=== PATIENT | male | born 1950 | race Caucasian/White ===

== ENCOUNTER 2022-04-23 12:19 | Inpatient (IN) | payer MEDICARE, SELFPAY ==
[2022-04-23] VITALS (69 sets, daily range): BP systolic 89–204; BP diastolic 62–114; PULSE 79–108; RESP 13–36; TEMP 35.3–36.8; O2SAT 73–100; BMI 4394.9
--- NOTE | 2022-04-23 12:25 | XRR_ITS ---
PROCEDURE INFORMATION: Exam: XR Chest Exam date and time: 04/23/2022 1:19 PM Age: 71 years old Clinical indication: Device placement; Other: Et and ng placement; Additional info: Cardiac arrest TECHNIQUE: Imaging protocol: Radiologic exam of the chest. Views: 1 view. COMPARISON: No relevant prior studies available. FINDINGS: Tubes, catheters and devices: There is an ET tube in satisfactory position 5 cm above the joshua. There is an NG tube coursing into the body of the stomach in adequate position. Lungs: Mild pulmonary vascular congestion noted. Retrocardiac opacity obscured by left heart border concerning for left lower lobe consolidation.. Pleural spaces: Unremarkable. No pleural effusion. No pneumothorax. Heart/Mediastinum: Heart appears mildly enlarged on this portable chest exam. Bones/joints: Unremarkable for age. XR/XR chest 1V portable [id number] IMPRESSION: 1. ET and NG tube in satisfactory position. 2. Cardiomegaly with mild pulmonary vascular congestion. 3. Findings suspicious for left lower lobe consolidation.
--- NOTE | 2022-04-23 12:26 | ECG_ITS ---
[facility] Test Date: 2022-04-23 Pat Name: Zhao Martin Department: Room: Gender: Male Eyeglass Frame Truer: : 1950 Requested By: Sanju Lagunas Order Number: [id number] Ya MD: Bob Jacobo M.D. Measurements Intervals [place] Rate: 89 P: 59 WA: 156 QRS: -2 QRSD: 96 T: 83 QT: 383 QTc: 468 Interpretive Statements SINUS RHYTHM WITH FREQUENT ECTOPIC PREMATURE COMPLEXES POSSIBLE RIGHT VENTRICULAR CONDUCTION DELAY [RSR (QR) IN V1/V2] NONSPECIFIC ST & T-WAVE ABNORMALITY ABNORMAL RHYTHM ECG INTERPRETATION BASED ON A DEFAULT AGE OF 40 YEARS No previous ECG available for comparison Electronically Signed On 04-23-2022 14:27:55 MAIL HANDLER SORTER by Bob Jacobo M.D. [email or web address]/store/[id number] f
[2022-04-23] MEDS: vecuronium 10 mg SDV 3 MG IVP (12:28)
--- NOTE | 2022-04-23 12:28 | PC.NURSE ---
REQUESTED SEDATION OR PAIN MEDS FOR PT. DR TEJADA GAVE VERBAL ORDER FOR 3MG VECURONIUM. DOUBLE CHECKED ORDER WITH PHYSICIAN. PHYSICIAN INSTRUCTED TO CONTINUE WITH ADMINISTRATION
--- NOTE | 2022-04-23 12:30 | PC.NURSE ---
PT ARRIVED WITH NG TUBE IN PLACE
--- NOTE | 2022-04-23 12:40 | PC.NURSE ---
PT PLACED ON CONTINUOUS NIBP, SPO2, AND CM
[2022-04-23] MEDS: sodium bicarbonate 8.4% 1 mEq/mL 50mL Syr 100 MEQ IVP (12:45)
--- NOTE | 2022-04-23 12:45 | PC.NURSE ---
DR. DOE GAVE VERBAL ORDER TO APPLY TWO POINT SOFT RESTRAINT
[2022-04-23 12:54] LABS: ABG PH Result 7.32 (7.35-7.45); Blood Gas Allen Test Pos; Blood Gas Sample Site Radial, left; Blood Gas Sample Type Arterial; Carboxyhemoglobin < 1.0 %THgb (0.4-20.1); Methemoglobin 0.3 % (0.4-1.5); Oxygen Device VENT
[2022-04-23 12:57] LABS: Basophils # 0.1 10^3/uL (0.0-0.1); Basophils % 0.7 %; Eosinophils # 0.2 10^3/uL (0.0-0.8); Eosinophils % 1.5 %; Hematocrit 50.7 % (42.0-52.0); Hemoglobin 16.4 g/dL (11.7-16.6); Lymphocytes # 2.2 10^3/uL (0.8-4.8); Mean Corpuscular HGB Conc 32.3 g/dL (30.0-36.0); Mean Corpuscular Hemoglobin 29.8 pg (28.0-34.0); Mean Platelet Volume 10.4 fL (7.4-10.4); Monocytes # 0.2 10^3/uL (0.2-0.9); Monocytes % 1.5 %; Neutrophils # 8.96 10^3/uL (1.8-7.7); Nucleated Red Blood Cells % 0 %; Platelet Count 229 10^3/cmm (130-400); Red Blood Count 5.51 10^6/uL (4.1-5.3); Red Cell Distribution Width 12.5 % (12.1-15.1); White Blood Count 13.1 10^3/uL (4.0-10.0)
[2022-04-23 12:59] LABS: Alveolar-Arterial Oxygen Gradi 75.3 mmHg (5-10); Arterial Blood Gas Hematocrit 51.7 % (42-52); Base Excess ABG -1.6 mmol/L (-2.0-2.0); HCO3 ABG 29.7 mmol/L (22-26); HGB O2 Sat 73.3 % (95-100); Oxygen Saturation ABG 74.3; PO2 ABG 50.1 mmHg (80.0-100.0); Potassium Level - ABG 4.2 mmol/L (3.5-5.0); Total Hemoglobin 16.9 g/dL (14-18)
--- NOTE | 2022-04-23 13:00 | PC.NURSE ---
pt arrived to ed from [facility]. with 8fr et tube and ng tube intact. levophed running. [facility] reports giving total 475mg of ketamine over multiple doses for pt sedation. pt arrived with left humerus io, 18g iv in left wrist and 18g iv in right ac space. Xray verified tube placement. equal breath sounds heard bilat. dr. sarkar then started a central line in the right groin.
--- NOTE | 2022-04-23 13:15 | PC.NURSE ---
DR. DOE PLACED 7FR CENTRAL LINE TO RIGHT GROIN. CENTRAL LINE KIT USED.
--- NOTE | 2022-04-23 13:17 | ED_ITS ---
HPI - Syncope General: Chief Complaint: Cardiac Arrest/CPR Stated Complaint: INTUBATED Time Seen by Provider: 04/23/22 12:22 Source: EMS and other (er physician at [facility]) Mode of arrival: other ([facility]) Limitations: altered mental status and other (intubated) History of Present Illness: See nursing assessment. Patient reportedly had a witnessed arrest at 9:50 AM today. Bystander started CPR. EMS responded and did CPR and followed ACLS protocol for PEA. Patient had CPR ongoing for approximately 65 minutes prior to arrival to hospital. Patient did have return of spontaneous pulses and occasional spontaneous breathing. Patient has been intubated with 8.0 endotracheal tube. Patient received a total of 12 doses of 1 mg epinephrine prior to arrival. Patient to be given 150 mg amiodarone IV. Patient reportedly only received 1500 units of heparin bolus prior to arrival according to ER nurse at [facility]. Patient was started on heparin drip prior to arrival. Patient to be given 1 amp of bicarb prior to arrival. Her blood sugar upon arrival was 267. Patient arrives intubated on Levophed drip. Patient received ketamine for intubation. Patient became hypotensive in route. According to nurse at [facility] review of records showed allergy to penicillin and history of asthma and occasional pneumonia. No cardiac history noted. Patient does appear to be moving his upper extremities. Review of Systems General: Reports: ROS unobtainable due to medical condition, ROS unobtainable due to mental status and Other (Patient reportedly had witnessed cardiac arrest at home. Pt is intubated) Card: Reports: syncope Resp: Denies: dyspnea Neuro: Reports: other (Altered mental status) [facility] ED PFSH: Medical History No pertinent past medical history Surgical History No pertinent past surgical history Family History (Updated 04/23/22 @ 16:16 by Teetee Parker MD) Other CAD (coronary artery disease) Social History (Updated 04/23/22 @ 16:16 by Teetee Parker MD) Smoking and tobacco status: never smoked Alcohol intake: never Substance/Drug Use: never Household members: spouse Supplemental [facility] Information: According to nursing personnel from [facility] ER patient has a history of asthma and occasional pneumonia. Physical Exam Const: EXAM LIMITATIONS: altered mental status and other limitations (Intubated, sedated) HENMT: COMMON NORMALS: normocephalic and atraumatic HEAD & SCALP: normocephalic and atraumatic FACE & SINUS: normal facial exam Eye: OTHER: Pupils are pinpoint bilaterally Neck/C-Spine: COMMON NORMALS: full ROM, no lymphadenopathy and supple GENERAL: Yes normal visual inspection Lymph: LYMPHATIC: no lymphadenopathy noted Chest: COMMONS NORMALS: normal inspection of the chest and normal palpation of entire chest wall CHEST: No Ecchymosis present and No rash Resp: OTHER: Few rhonchi bilaterally. Otherwise, clear breath sounds bilaterally. Cardio: COMMON NORMALS: regular rate, regular rhythm and Peripheral pulses 2+ throughout RATE: regular rate RHYTHM: regular rhythm PERIPHERAL PULSES: Peripheral pulses 2+ throughout GI: COMMON NORMALS: Normal to inspection, nondistended, normoactive bowel sounds present : OTHER: Penis and scrotum appear normal. Extremity: COMMON NORMALS: normal to inspection, full ROM and capillary refill normal Neuro: OTHER: Patient has been sedated and is on ventilator. Patient does move his upper extremities as sedation wears off. Psych: OTHER: Patient intubated and sedated. Skin: COMMON NORMALS: no rashes or lesions noted and no wounds GENERAL SKIN EXAM: no rashes or lesions noted Procedures Central Line Placement Right Femoral: Patient Placed on Monitor/Pulse Ox: Yes MD Prep: mask, gown and gloves Central Line Prep: Chlorhexidine scrub and sterile drapes applied Local Anesthetic: lidocaine 1% Amount of anesthesia used (mL): 10 Ultrasound Used for Placement: Yes Central Line Lumen Inserted: triple Post Procedure: sutured in place, good blood return, all ports aspirated, flushed, capped and sterile dressing applied Patient Tolerated Procedure: well and other Complications: none Additional Comments: Was able to penetrate right femoral vein with first attempt but wire did not pass well and I removed the wire and attempted again. I did puncture the right femoral artery a of couple of times. After few more attempts I was able to get access to right femoral vein. Good blood return and good flushing without problems. No pulsatile blood flow with last attempt. Course Vital Signs: Vital signs: Vital Signs Temperature 95.6 F L 04/23/22 18:00 Pulse Rate 81 04/23/22 18:30 Respiratory Rate 17 04/23/22 18:15 Blood Pressure 111/78 04/23/22 18:30 Pulse Oximetry 100 04/23/22 18:30 Oxygen Delivery Me thod 04/23/22 16:05 Fraction of Inspir ed Oxygen 90 04/23/22 18:15 MDM - Syncope Medical Decision Making Spontaneous cardiac arrest. Return of spontaneous pulse and respirations. Initial cardiac strip reviewed from EMS showed widened QRS and ST segment elevations in inferior lateral leads. Reportedly rn first assist reviewed the strip and stated strip was nonspecific. EKG here shows ST segment depression throughout consistent with myocardial ischemia and occasional PVC. According to nursing personnel, clean protocol is not available at this hospital. approx 1330: Discussed with rn first assist Dr. Jacobo. He will see the patient as a trousseau consultant. He will assess the patient and determine if patient is candidate for cardiac cath. 1340: Discussed with hospitalist Dr. Parker. Will admit the patient to ICU. Asked that I start bicarb drip. 1441: Son and and [id number] came back to the room. Son states that patient was sitting in the car and had lost consciousness and brief seizure activity. Son started CPR immediately after he could not find a pulse. Sons continued CPR until EMS arrived. Family updated on patient's condition and treatment. Lab Data 04/23/22 12:20 04/23/22 12:20 Radiology Impressions Chest X-Ray 04/23/22 12:25 IMPRESSION: 1. ET and NG tube in satisfactory position. 2. Cardiomegaly with mild pulmonary vascular congestion. 3. Findings suspicious for left lower lobe consolidation. Head CT 04/23/22 16:21 IMPRESSION: No acute intracranial abnormality. Laboratory Results WBC 13.1 10^3/uL (4.0-10.0) H 04/23/22 12:20 RBC 5.51 10^6/uL (4.1-5.3) H 04/23/22 12:20 Hgb 16.4 g/dL (11.7-16.6) 04/23/22 12:20 Hct 50.7 % (42.0-52.0) 04/23/22 12:20 MCV 92.0 fl (80-94) 04/23/22 12:20 MCH 29.8 pg (28.0-34.0) 04/23/22 12:20 MCHC 32.3 g/dL (30.0-36.0) 04/23/22 12:20 RDW 12.5 % (12.1-15.1) 04/23/22 12:20 Plt Count 229 10^3/cmm (130-400) 04/23/22 12:20 MPV 10.4 fL (7.4-10.4) 04/23/22 12:20 Neut % (Auto) 79.3 % 04/23/22 12:20 Lymph % (Auto) 17.0 % 04/23/22 12:20 [place] % (Auto) 1.5 % 04/23/22 12:20 Eos % (Auto) 1.5 % 04/23/22 12:20 Baso % (Auto) 0.7 % 04/23/22 12:20 Neut # (Auto) 8.96 10^3/uL (1.8-7.7) H 04/23/22 12:20 Lymph # (Auto) 2.2 10^3/uL (0.8-4.8) 04/23/22 12:20 [place] # (Auto) 0.2 10^3/uL (0.2-0.9) 04/23/22 12:20 Eos # (Auto) 0.2 10^3/uL (0.0-0.8) 04/23/22 12:20 Baso # (Auto) 0.1 10^3/uL (0.0-0.1) 04/23/22 12:20 Nucleated RBC % (auto) 0 % 04/23/22 12: Nucleated RBCs # 0.0 /100WBC 04/23/22 12:20 APTT 42.8 SECONDS (23.9-36.7) H 04/23/22 12:20 Specimen Type Arterial 04/23/22 12:42 Sample Site Radial, left 04/23/22 12:42 ABG pH 7.32 (7.35-7.45) L 04/23/22 12:42 ABG pCO2 79.8 mmHg (35-45) H* 04/23/22 12:42 ABG pO2 50.1 mmHg (80.0-100.0) L 04/23/22 12:42 ABG HCO3 29.7 mmol/L (22-26) H 04/23/22 12:42 ABG O2 Saturation 74.3 04/23/22 12:42 ABG Base Excess -1.6 mmol/L (-2.0-2.0) 04/23/22 12:42 Maxi Test Pos 04/23/22 12:42 A-a O2 Gradient 75.3 mmHg (5-10) H 04/23/22 12:42 Hematocrit 51.7 % (42-52) 04/23/22 12:42 Hgb O2 Saturation 73.3 % (95-100) L 04/23/22 12:42 Carboxyhemoglobin < 1.0 %THgb (0.4-20.1) 04/23/22 12:42 Methemoglobin 0.3 % (0.4-1.5) L 04/23/22 12:42 Total Hemoglobin 16.9 g/dL (14-18) 04/23/22 12:42 Sodium 147.0 mmol/L (131-143) H 04/23/22 12:42 Potassium 4.2 mmol/L (3.5-5.0) 04/23/22 12:42 Glucose 270.0 mg/dL (70-115) H 04/23/22 12:42 Ionized Calcium 1.0 mmol/L (1.1-1.4) L 04/23/22 12:42 O2 Delivery Device Vent 04/23/22 12:42 FiO2 100.0 % 04/23/22 12:42 Tidal Volume 0.50 04/23/22 12:42 PEEP 10.0 cmH20 04/23/22 12:42 Associate Professor Of Economics ID [email or web address] 04/23/22 12:42 Sodium 138 mmol/L (136-145) 04/23/22 12:20 Potassium 5.0 mmol/L (3.5-5.1) 04/23/22 12:20 Chloride 99 mmol/L (98-107) 04/23/22 12:20 Carbon Dioxide 17 mmol/L (22-29) L 04/23/22 12:20 Anion Gap 27.0 (5-19) H 04/23/22 12:20 BUN 14 mg/dL (8-23) 04/23/22 12:20 Creatinine 1.7 mg/dL (0.7-1.2) H 04/23/22 12:20 GFR Calculation 40.2 mL/min (90-130) L 04/23/22 12:20 Glucose 320 mg/dL (65-115) H 04/23/22 12:20 Calculated Osmolality 299 mOsm/kg (285-295) H 04/23/22 12:20 Calcium 7.7 mg/dL (8.5-10.5) L 04/23/22 12:20 Troponin T Baseline 1014 ng/L (0-15) H* 04/23/22 12:20 NT-Pro-B Natriuret Pep 118 pg/mL (0-125) 04/23/22 12:20 SARS-CoV-2 Ag (Rapid) negative (Negative) 04/23/22 13:37 Imaging Data CXR: My impression: Mild pulmonary edema bilaterally. Endotracheal tube in good position. Radiologist's impression: PROCEDURE INFORMATION: Exam: XR Chest Exam date and time: 04/23/2022 1:19 PM Age: 71 years old Clinical indication: Device placement; Other: Et and ng placement; Additional info: Cardiac arrest TECHNIQUE: Imaging protocol: Radiologic exam of the chest. Views: 1 view. COMPARISON: No relevant prior studies available. FINDINGS: Tubes, catheters and devices: There is an ET tube in satisfactory position 5 cm above the joshua. There is an NG tube coursing into the body of the stomach in adequate position. Lungs:? Mild pulmonary vascular congestion noted.? Retrocardiac opacity obscured by left heart border concerning for left lower lobe consolidation.. Pleural spaces: Unremarkable. No pleural effusion. No pneumothorax. Heart/Mediastinum: Heart appears mildly enlarged on this portable chest exam. Bones/joints: Unremarkable for age. XR/XR chest 1V portable [id number] IMPRESSION: 1. ET and NG tube in satisfactory position. 2. Cardiomegaly with mild pulmonary vascular congestion. 3. Findings suspicious for left lower lobe consolidation. ? Dictated By: Ja Moura MD Signed By: Ja Moura MD Signed Date/Time: 04/23/22 6060 EKG Data EKG 1: I personally reviewed and interpreted this EKG as follows: EKG interpretation date: 04/23/22 EKG interpretation time: 12:27 Prior EKG tracings: not available for review Interpretation: Impression normal sinus rhythm with a heart rate of 89. Normal IL interval, normal QT interval. Normal P waves, normal T waves. Normal axis. Occasional PVC. Normal QRS. ST segment 1 to 2 mm depression consistent with myocardial ischemia. EKG 2: I personally reviewed and interpreted this EKG as follows: EKG interpretation date: 04/23/22 EKG interpretation time: 14:37 Prior EKG tracings: available for review (Mild improvement of ST segment depression since last EKG.) Interpretation: Impression sinus tachycardia with heart rate of 104. Mild improvement of ST segment depression throughout. Normal axis. Normal IL interval, normal QT interval. ST segment depression consistent with myocardial ischemia. Left atrial enlargement. Normal axis. Critical Care Time Critical Care Time: Critical Care Time: Yes Total Critical Care Time: 90 Attestation: See orders. Consultations with EMS, [facility] ER physician, hospitalist and rn first assist. Discharge Plan Discharge Patient Disposition: Admitted As Inpatient Admit Provider: Teetee Parker Clinical Impression: Cardiac arrest, Acute myocardial ischemia, Non-ST elevated myocardial infarction (non-STEMI), Encounter for central line placement, Acute hyperglycemia Condition: Stable Coding Level of Care Code ED Automobile Radio Repairer for Chg Fwd History Comprehensive Exam Comprehensive Medical Decision Making High Complexity
--- NOTE | 2022-04-23 13:17 | PC.NURSE ---
pt opening eyes, requested sedation or pain medication for pt. verbal order for 3mg Vecuronium IVP received. physician placing order for propofol drip.
[2022-04-23 13:19] LABS: Partial Thromboplastin Time 42.8 SECONDS (23.9-36.7)
[2022-04-23 13:26] LABS: Troponin(5th) Baseline 1014 ng/L (0-15)
[2022-04-23 13:29] LABS: Neutrophils % 79.3 %; Slide Review Slide Review Perform
[2022-04-23] MEDS: propofol 1,000 MG/100 ML INJ 2.94 MG IV (13:29)
[2022-04-23] MEDS: heparin 5,000 unit/mL INJ 1 mL 2500 UNIT IV (13:45)
[2022-04-23] MEDS: FUROsemide 10 mg/mL SDV 2mL 20 MG IVP (13:45)
[2022-04-23] MEDS: heparin drip 25,000 UNIT/500 ML PREMIX 23.52 UNIT IV (14:02)
--- NOTE | 2022-04-23 14:03 | P.CONIM_ITS ---
Providers/Reason For Consult Consulting Physician/Specialty*: Cardiovascular medicine Reason for Consult*: Out of hospital cardiac arrest. Requesting Physician: Emergency room Attending Physician: Hospitalist Primary Care Provider: IJEOMA Mcmahon History of Present Illness History of Present Illness Zhao Martin is a 71 year old male who apparently suffered a witnessed arrest at home this morning it 0950 hrs. There was apparently bystander CPR. 911 was called and EMS arrived and performed ACLS protocol for PEA for 65 minutes. ROSC was eventually achieved. He was taken to [facility] in [place]. The note states that the patient had has had some spontaneous breathing. He was given total of 12 mg of epinephrine and 150 mg of amiodarone. The [facility] gave him 1500 units of heparin. He has been given an additional 2500 units here and started on a heparin drip. He was also given ketamine and succinylcholine for intubation at the [facility]. He was given 1 amp of sodium bicarbonate at the [facility]. His blood sugar was 267. He was transferred here on norepinephrine drip but that has been discontinued. His blood pressure is 122/60. Obviously a history cannot be taken. There are no family members here at this time. The patient is intubated and lying on the gurney. There are a lot of spontaneous movements that appear to me to be myoclonic in origin. Propofol has been started so along with the succinylcholine, ketamine and propofol it is impossible to assess his overall mental status at this point. Twelve-lead EKG here reveals sinus rhythm with premature ventricular contractions and diffuse mild ST segment depression. There is no ST elevation. Review of Systems Narrative: Unavailable Medications/Allergies Home Medications Medication Instructions Recorded Confirmed Last Taken Type Unable to Assess 04/23/22 04/23/22 Unknown History Allergies Allergy/AdvReac Type Severity Reaction Status Date / Time Penicillins Allergy Unknown Unknown Verified 04/23/22 13:39 Current Medications Generic Name Dose Route Start Last Admin Trade Name Freq PRN Reason Stop Dose Admin Norepinephrine Bitartrate 4 mg 254 mls @ 0 mls/hr 04/23/22 12:45 04/23/22 13:00 / Dextrose IV 0 mcg/min .Q0M MEY 0 mls/hr Titration Protocol Per Protocol Propofol 1,000 mg in 100 mls @ 0 mls/hr 04/23/22 13:15 04/23/22 13:50 Diprivan IV 15 mcg/kg/min .Q0M MEY 8.82 mls/hr Titration Protocol Per Protocol Vitals/I&O/Wt Last Vital Signs Temp 95.5 F L 04/23/22 12:25 Pulse 97 04/23/22 12:25 Resp 14 04/23/22 12:34 BP 128/80 04/23/22 12:25 Pulse Ox 98 04/23/22 12:25 O2 Del Method 04/23/22 12:25 FiO2 100 04/23/22 12:34 04/22/22 04/23/22 04/23/22 22:59 06:59 14:59 Intake Total 7.332 / 7.332 Balance 7.332 / 7.332 Physical Exam Narrative: GENERAL: He is intubated, sedated and lying on the gurney in the emergency room. There are spontaneous movements of his arms, legs and musculature which appear to be myoclonic in origin. HEENT: Exam within normal limits. NECK: Supple without jugular vein distention. The carotid upstroke is normal without bruits. BACK: Exam normal. LUNGS: Clear. HEART: Regular rate and rhythm. ABDOMEN: Benign without organomegaly or tenderness. EXTREMITIES: No edema. NEUROLOGIC: Exam not done. SKIN: Unremarkable. Data 04/23/22 12:20 04/23/22 12:20 A&P Assessment and plan (1) Cardiac arrest: Plan If what is reported is correct, that is the original rhythm was PEA and that he actually had CPR for 65 minutes, the likelihood of survival is less than 1%. The twelve-lead EKG does not reveal ST segment elevation and so he is not a candidate for coronary angiography emergently. He should be supported with respect to his vital signs and respirations and we should await his central nervous system reawakening if that is going to happen. Cardiac catheterization should be delayed until there is meaningful neurologic recovery. Consult Attestations Medical Necessity Statement: Hospitalization for post out of hospital cardiac arrest. Coding Level of Care Code New Pt Acute Code for Chg Fwd Patient Type New History Detailed Exam Detailed Medical Decision Making High Complexity Diagnoses Cardiac arrest I46.9
[2022-04-23 14:04] LABS: Blood Urea Nitrogen 14 mg/dL (8-23); Calcium 7.7 mg/dL (8.5-10.5); Carbon Dioxide 17 mmol/L (22-29); Chloride 99 mmol/L (98-107); Glomerular Filtration Rate 40.2 mL/min (90-130); Glucose 320 mg/dL (65-115); NT Pro B Type Natriuretic Pept 118 pg/mL (0-125); Osmolality Calculated 299 mOsm/kg (285-295); Sodium 138 mmol/L (136-145)
--- NOTE | 2022-04-23 14:10 | PC.NURSE ---
LEVOPHED STARTED AT 2MCG HOOKED TO CENTRAL LINE
--- NOTE | 2022-04-23 14:35 | ECG_ITS ---
[facility] Test Date: 2022-04-23 Pat Name: Zhao Martin Department: Room: Gender: Male Offal Roller: : 1950 Requested By: Sanju Lagunas Order Number: [id number] Ya MD: Bob Jacobo M.D. Measurements Intervals [place] Rate: 104 P: 71 AK: 140 QRS: 30 QRSD: 88 T: 83 QT: 359 QTc: 473 Interpretive Statements SINUS TACHYCARDIA MODERATE ST DEPRESSION [0.05+ mV ST DEPRESSION] Compared to ECG 04/23/2022 12:24:21 ST (T wave) deviation now present Sinus rhythm no longer present T-wave abnormality no longer present Electronically Signed On 04-24-2022 10:09:12 AIR CARGO GROUND OPERATIONS SUPERVISOR by Bob Jacobo M.D. [email or web address], [id number]
[2022-04-23 14:44] LABS: SARS Covid-2 Antigen negative (Negative)
[2022-04-23] MEDS: sodium bicarbonate 50 MEQ in sodium chloride 0.45% 1,000 ML 100 MEQ IV (14:45)
[2022-04-23 15:00] LABS: ABG PCO2 42.6 mmHg (35-45); ABG PH Result 7.27 (7.35-7.45); Base Excess ABG -7.5 mmol/L (-2.0-2.0); Blood Gas Allen Test Pos; Blood Gas Sample Site Radial, left; Blood Gas Sample Type Arterial; Carboxyhemoglobin < 1.0 %THgb (0.4-20.1); HCO3 ABG 19.3 mmol/L (22-26); HGB O2 Sat 97.5 % (95-100); Ionized Calcium Level - ABG 1.1 mmol/L (1.1-1.4); Methemoglobin 0.2 % (0.4-1.5); Oxygen Saturation ABG 98.3; Potassium Level - ABG 4.1 mmol/L (3.5-5.0); Total Hemoglobin 18.3 g/dL (14-18)
[2022-04-23 15:02] LABS: Alveolar-Arterial Oxygen Gradi 71.4 mmHg (5-10); Oxygen Device VENT
[2022-04-23] MEDS: aspirin 300 mg Supp PR (15:10)
[2022-04-23 15:12] LABS: Troponin 5 2HR 2241 ng/L (0-15); Troponin 5 2HR Delta 1227 ABS# (0-10)
--- NOTE | 2022-04-23 16:08 | P.HP_ITS ---
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 Jacobo reviewed EKG did not recommend urgent coronary angiogram however troponins are above 1000, patient has metabolic acidosis currently on bicarb drip along Levophed and sedatives. After meeting with the family, son is stating that he would like to keep him ful l code and agree with TTM/hypothermia protocol Patient was evaluated in front of ICU nurse, son, and [id number] Metabolic acidosis improving with bicarb drip, Chest x-ray showing pulmonary contusion versus flash pulm edema EKG does not show any ST elevation signs, Review of Systems General: Reports: ROS unobtainable due to endotracheal tube and ROS unobtainable due to medical condition Medications/Allergies Home Medications Medication Instructions Recorded Confirmed Last Taken Type Unable to Assess 04/23/22 04/23/22 Unknown History Allergies Allergy/AdvReac Type Severity Reaction Status Date / Time Penicillins Allergy Unknown Unknown Verified 04/23/22 13:39 PFSH Acute PFSH: Medical History No pertinent past medical history Surgical History No pertinent past surgical history Family History (Updated 04/23/22 @ 16:16 by Teetee Parker MD) Other CAD (coronary artery disease) Social History (Updated 04/23/22 @ 16:16 by Teetee Parker MD) Smoking and tobacco status: never smoked Alcohol intake: never Substance/Drug Use: never Household members: spouse Vitals/I&O/Wt Last Vital Signs Temp 95.5 F L 04/23/22 12:25 Pulse 100 04/23/22 14:50 Resp 31 H 04/23/22 15:51 BP 117/73 04/23/22 14:50 Pulse Ox 98 04/23/22 16:05 O2 Del Method 04/23/22 16:05 FiO2 90 04/23/22 16:05 04/23/22 04/23/22 04/23/22 06:59 14:59 22:59 Intake Total 25.499 / 25.499 Balance 25.499 / 25.499 Weight last 48 hrs Weight 102.087 kg Physical Exam Narrative: elderly male Seems to be of good built No signs of overt fluid overload Currently intubated and sedated Hemodynamic stable Afebrile No eye movement, pupils are not really reactive, constricted Abdomen soft Lower extremity no edema Urinary Catheter Management: Newton: Cath Placed During This Visit: yes Urinary Catheter Date of Insertion: 04/23/22 Urinary Catheter Time of Insertion: 14:17 Data 04/23/22 12:20 04/23/22 12:20 A&P Assessment and plan (1) Cardiac arrest: (2) Acute hyperglycemia: (3) Acute myocardial ischemia: (4) Non-ST elevated myocardial infarction (non-STEMI): (5) Metabolic acidosis: (6) RENA (acute kidney injury): Plan Respiratory failure after cardiac arrest Intubated and sedated in the field Resuscitation for 65 minutes by the EMS and 30 minutes by his son Patient is high risk for anoxic brain injury He is ideal candidate for TTM/hypothermia protocol Not a candidate for coronary angiogram For metabolic acidosis getting bicarb drip Requiring Levophed, after intubation likely due to the effect of drugs BNP 118 Check echo Patient was found to have myoclonus and some eye movement in the ER by the ER physician however he has not shown such activity during my evaluation Patient remained full code I would use Lovenox therapeutic regimen No feeding for at least 72 hours to prevent gut ischemia Patient has not been vaccinated for COVID-19 As per the family no recent fever however he was complaining of flulike symptoms This seems to be a PEA related to coronary ischemia Cooling Technique * Core temperature should be measured throughout the period of cooling via urinary catheter or oropharyngeal/nasopharyngeal probe,?not?rectal probe * The aim is to cool the patient as soon as possible to?36?C * This temperature should be sustained for 28 hours from initiation of cooling * All patients should have reached the target temperature as rapidly as possible from initiation of cooling. This is achieved initially by one of the following: * Applying icepacks to the patients head, neck, torso and limbs (remove when temperature reaches 36?C) * Infusing 20-30mls/kg of refrigerated saline over 20-30mins if volume status permits * Applying a cooling device (Blanketroll III, available in ICU, see protocol for instructions on use) * Patients?should be sedated for 36 hours after initiation of cooling * Prevent shivering with sedation and/or Vecuronium administered as required * Monitor patient for arrhythmias * Monitor electrolytes, ABGs and coagulation every 6 hours during cooling and rewarming phase * Monitor skin for breakdown and thermal oconnell. Use pillow case or other material between blanket and patients skin if required * After the intervention period, the body temperature for should be? maintained below 37.5?C until 72 hours after the cardiac arrest. Calcium levels may?fall?with cooling.Magnesium levels may?fall?with cooling .Potassium levels may?rise?or?fall?with cooling.Glucose levels may?rise?or?fall ?with cooling Re-warming procedure * After 28 hours, gradual rewarming to 37?C in hourly increments of 0.5?C. Use c ooling device to rewarm patient.?Do not remove the blanket to allow the patient to rewarm passively * Each hour increase the cooling blanket setpoint temperature by 0.5?C (to max imum setpoint of 37 ?C). Press the temperature set switch, use the up arrow to increase the setpoint by 0.5?C * Press the gradient variable button. Please refer to Blanketroll III protocol for instructions on use * Monitor electrolytes, ABGs and coagulation during and post rewarming * * * * Attestations Medical Necessity Statement*: Requiring more than 2 midnights Critical Care Time: 45, including assessment, family meeting, talk with Dr. Jacobo, initiating hypothermia protocol Coding Level of Care Code Acute Code for Chg Fwd Diagnoses Cardiac arrest I46.9 Acute hyperglycemia R73.9 Acute myocardial ischemia I24.9 Non-ST elevated myocardial infarction (non-STEMI) I21.4 Metabolic acidosis E87.20 RENA (acute kidney injury) N17.9
--- NOTE | 2022-04-23 16:21 | CTR_ITS ---
PROCEDURE INFORMATION: Exam: CT Head Without Contrast Exam date and time: 04/23/2022 4:46 PM Age: 71 years old Clinical indication: Other: Post cardiac arrest TECHNIQUE: Imaging protocol: Computed tomography of the head without contrast. Radiation optimization: All CT scans at this facility use at least one of these dose optimization techniques: automated exposure control; mA and/or kV adjustment per patient size (includes targeted exams where dose is matched to clinical indication); or iterative reconstruction. COMPARISON: No relevant prior studies available. RADIATION DOSE METRICS: Total DLP (mGy-cm): 1166.58 FINDINGS: Brain: No intracranial hemorrhage. No mass effect, edema or midline shift. Cortical sulci are unremarkable for age. There are vague areas of decreased attenuation within the periventricular white matter likely secondary to chronic microvascular changes. Cerebral ventricles: No ventriculomegaly. Paranasal sinuses: Visualized sinuses are unremarkable. No fluid levels. Mastoid air cells: Visualized mastoid air cells are well aerated. Bones/joints: Unremarkable. No acute fracture. Soft tissues: Unremarkable. CT/CT head wo con* [id number] IMPRESSION: No acute intracranial abnormality.
[2022-04-23 17:25] LABS: Glucose Point of Care 135 mg/dL (70-110)
[2022-04-23] MEDS: enoxaparin 100 mg/mL Syringe SUBCUT (18:12)
[2022-04-23] MEDS: FUROsemide 10 mg/mL SDV 4mL 40 MG IVP (18:13)
[2022-04-23] MEDS: levofloxacin-dextrose 5 % 750 MG/150 ML PREMIX 100 MG IV (18:13)
[2022-04-23] MEDS: propofol 1,000 MG/100 ML INJ 20.58 MG IV (18:16)
--- NOTE | 2022-04-23 18:26 | ECG_ITS ---
[facility] Test Date: 2022-04-23 Pat Name: Zhao Martin Department: Room: ICU12 Gender: Male Electronic Imaging System Operator: : [id number] Requested By: Sanju Lagunas Order Number: [id number] Ya MD: Bob Jacobo M.D. Measurements Intervals [place] Rate: 81 P: 51 IA: 139 QRS: 29 QRSD: 94 T: 60 QT: 394 QTc: 459 Interpretive Statements SINUS RHYTHM MODERATE ST DEPRESSION [0.05+ mV ST DEPRESSION] Compared to ECG 04/23/2022 14:35:48 Sinus tachycardia no longer present ST (T wave) deviation still present Electronically Signed On 04-24-2022 10:09:24 MAJOR ACCOUNT MANAGER by Bob Jacobo M.D. [id number]
[2022-04-23 18:41] LABS: INR 1.29 (0.8-1.2)
[2022-04-23 18:42] LABS: Fibrinogen 334 mg/dL (174-498); Partial Thromboplastin Time 46.1 SECONDS (23.9-36.7)
[2022-04-23 18:46] LABS: Alanine Aminotransferase 562 U/L (0-41); Albumin Level 3.6 g/dL (3.5-5.2); Alkaline Phosphatase 100 U/L (40-130); Blood Urea Nitrogen 19 mg/dL (8-23); Calcium 8.6 mg/dL (8.5-10.5); Carbon Dioxide 22 mmol/L (22-29); Chloride 99 mmol/L (98-107); Globulin 2.9 g/dL (1.3-4.6); Glomerular Filtration Rate 29.8 mL/min (90-130); Glucose 158 mg/dL (65-115); Osmolality Calculated 294 mOsm/kg (285-295); Sodium 139 mmol/L (136-145); Total Bilirubin 0.5 mg/dL (0.15-1.2); Total Protein 6.5 g/dL (6.6-8.7)
[2022-04-23 18:52] LABS: Anion Gap 22.5 (5-19); Potassium 4.5 mmol/L (3.5-5.1)
[2022-04-23 18:56] LABS: Aspartate Amino Transferase 801 U/L (0-40)
[2022-04-23 18:58] LABS: D Dimer >= 20.00 ug/mIFEU (0-0.59)
[2022-04-23 19:05] LABS: Troponin 5 6HR 4689 ng/L (0-15); Troponin 5 6HR Delta 3675 ng/L (0-12)
--- NOTE | 2022-04-23 19:06 | PC.NURSE ---
unable to proceed with cooling at this time Dr Corey aware not all equipment
--- NOTE | 2022-04-23 19:21 | PC.NURSE ---
Targeted temperature management unable to be done, Dr. Parker notified per ANDREY Martin RN.
--- NOTE | 2022-04-23 20:50 | PC.NURSE ---
Full assessment done of patient. VS remain stable, titrating levophed down as tolerated. Bilat pupils sluggish but equal and reactive to light. Slight gag reflex noted when NT suctioned. when touched slight jerking motions noted of all 4 extremities. Not following any commands. Eyes open at times when family speaking to patient. Rectal temp remains 96.8. Family remains at bedside.
[2022-04-23 22:51] LABS: Alanine Aminotransferase 498 U/L (0-41); Albumin Level 3.3 g/dL (3.5-5.2); Alkaline Phosphatase 83 U/L (40-130); Anion Gap 20.1 (5-19); Aspartate Amino Transferase 679 U/L (0-40); Blood Urea Nitrogen 23 mg/dL (8-23); Calcium 8.1 mg/dL (8.5-10.5); Carbon Dioxide 23 mmol/L (22-29); Chloride 99 mmol/L (98-107); Globulin 2.4 g/dL (1.3-4.6); Glomerular Filtration Rate 25.7 mL/min (90-130); Glucose 148 mg/dL (65-115); Osmolality Calculated 292 mOsm/kg (285-295); Potassium 4.1 mmol/L (3.5-5.1); Sodium 138 mmol/L (136-145); Total Bilirubin 0.4 mg/dL (0.15-1.2); Total Protein 5.7 g/dL (6.6-8.7)
[2022-04-24] VITALS (81 sets, daily range): BP systolic 0–141; BP diastolic 0–92; PULSE 0–142; RESP 0–44; TEMP -17.7–38.3; O2SAT 0–100
[2022-04-24] MEDS: sodium bicarbonate 50 MEQ in sodium chloride 0.45% 1,000 ML 100 MEQ IV (01:16)
[2022-04-24] MEDS: propofol 1,000 MG/100 ML INJ 14.7 MG IV (02:24)
[2022-04-24 03:09] LABS: Basophils % 0.2 %; Hematocrit 44.4 % (42.0-52.0); Hemoglobin 14.2 g/dL (11.7-16.6); Lymphocytes % 4.8 %; Mean Corpuscular Volume 90.8 fl (80-94); Mean Platelet Volume 10.4 fL (7.4-10.4); Monocytes # 1.4 10^3/uL (0.2-0.9); Monocytes % 6.5 %; Neutrophils # 18.61 10^3/uL (1.8-7.7); Neutrophils % 87.7 %; Nucleated Red Blood Cells % 0 %; Platelet Count 218 10^3/cmm (130-400); Red Blood Count 4.89 10^6/uL (4.1-5.3); Red Cell Distribution Width 12.5 % (12.1-15.1); White Blood Count 21.2 10^3/uL (4.0-10.0)
[2022-04-24 03:24] LABS: INR 1.34 (0.8-1.2)
[2022-04-24 03:25] LABS: Fibrinogen 354 mg/dL (174-498)
[2022-04-24 03:35] LABS: D Dimer 18.66 ug/mIFEU (0-0.59)
[2022-04-24 03:37] LABS: Alanine Aminotransferase 475 U/L (0-41); Albumin Level 3.1 g/dL (3.5-5.2); Alkaline Phosphatase 81 U/L (40-130); Anion Gap 22.2 (5-19); Aspartate Amino Transferase 556 U/L (0-40); Blood Urea Nitrogen 25 mg/dL (8-23); Calcium 7.2 mg/dL (8.5-10.5); Carbon Dioxide 21 mmol/L (22-29); Chloride 98 mmol/L (98-107); Globulin 2.1 g/dL (1.3-4.6); Glomerular Filtration Rate 21.7 mL/min (90-130); Glucose 163 mg/dL (65-115); Osmolality Calculated 290 mOsm/kg (285-295); Potassium 5.2 mmol/L (3.5-5.1); Sodium 136 mmol/L (136-145); Total Bilirubin 0.3 mg/dL (0.15-1.2); Total Protein 5.2 g/dL (6.6-8.7)
[2022-04-24] MEDS: enoxaparin 100 mg/mL Syringe SUBCUT ×2 (04:29→08:23)
[2022-04-24] MEDS: acetaminophen 650 mg Supp PR ×2 (04:29→05:48)
[2022-04-24 04:30] LABS: ABG PCO2 23.9 mmHg (35-45); ABG PH Result 7.47 (7.35-7.45); Arterial Blood Gas Hematocrit 45.3 % (42-52); Base Excess ABG -4.2 mmol/L (-2.0-2.0); Blood Gas Operator Identificat JB; Blood Gas Sample Site Brachial, left; Blood Gas Sample Type Arterial; HCO3 ABG 17.4 mmol/L (22-26); Oxygen Device VENT
--- NOTE | 2022-04-24 04:51 | PC.NURSE ---
Rectal temp 100.0 F. Tylenol suppository given as ordered, ice packs place to groin and axilla. Resp Rate and heart rate elevated, sedation increased.
--- NOTE | 2022-04-24 05:42 | PC.NURSE ---
Notified Dr. Ruth of patient temp is increasing this morning and is currently 100.4, his heart rate has increased to 130's, respiratory rate has increased to the 30's. RT got a ABG and we decreased her peep to 8 and FIo2 to 40%. I have given him rectal tylenol, placed ice packs and increased his sedation. Order given to given additional 650mg Tylenol rectal now. Updated on current neurological status, slight gag reflex, bilat pupils equal and reactive, no purposeful movement since assuming care of patient only occasional twitching noted when patient touched or spoken to. Read 04/24/22, 05:42
[2022-04-24] MEDS: EPINEPHrine 2.5 MG in sodium chloride 0.9% 250 ML 618.65 MG IV (06:53)
[2022-04-24] MEDS: LORazepam 2 mg/mL INJ 1 mL IM (07:10)
[2022-04-24] MEDS: cisatracurium 100 MG in sodium chloride 0.9% 50 ML 6.21 MG IV ×2 (07:28→07:42)
--- NOTE | 2022-04-24 08:03 | XRR_ITS ---
PROCEDURE INFORMATION: Exam: XR Chest Exam date and time: 04/24/2022 8:13 AM Age: 71 years old Clinical indication: Condition or disease; Other: Intubation, chf TECHNIQUE: Imaging protocol: Radiologic exam of the chest. Views: 1 view. COMPARISON: CR (CHEST, ) 04/23/2022 1:19 PM FINDINGS: Tubes, catheters and devices: Endotracheal tube terminates approximately 5.9 cm above the joshua. Enteric tube terminates in the region of the gastric fundus. Defibrillator pads overlie the thorax. Lungs: Unremarkable. No consolidation. Pleural spaces: Unremarkable. No pleural effusion. No pneumothorax. Heart/Mediastinum: Unremarkable. No cardiomegaly. Bones/joints: Unremarkable. XR/XR chest 1V portable [id number] IMPRESSION: Endotracheal tube terminates approximately 5.9 cm above the joshua.
--- NOTE | 2022-04-24 08:19 | P.PN_ITS ---
Subjective Subjective: Zhao is basically unchanged this morning. His neurologic status is unchanged. He was placed on targeted temperature management. His white blood cells have increased to 21.2 thousand. His initial pH was less than 7. It is now 7.47. His creatinine is up to 2.9. His transaminases are high, his first troponin was greater than 1000. The third troponin was greater than 3600. Head CT was negative. His EKG is actually normal today. He has required the institution of epinephrine, norepinephrine drips to maintain his blood pressure. He is tachycardic because of these drips. He is also on propofol. The nurses report some activity consistent with seizure. I did not meet his family yeste rday in the emergency room because they were not present. Today I met with his , son and daughter. Vitals/I&O/Wt Last Vital Signs Temp 100.9 F H 04/24/22 07:15 Pulse 135 H 04/24/22 08:04 Resp 44 H 04/24/22 08:04 BP 91/69 04/24/22 07:45 Pulse Ox 99 04/24/22 08:04 O2 Del Method 04/24/22 08:04 FiO2 30 04/24/22 08:04 04/23/22 04/24/22 04/24/22 22:59 06:59 14:59 Intake Total 406.058 / 157.704 1217.886 / 1656.443 1.656 / 1.656 Output Total 150 / 150 350 / 500 Balance 256.058 / 281.557 874.886 / 1156.443 1.656 / 1.656 Weight last 48 hrs Weight 228 lb 1.6 oz Weight 225 lb 1 oz Physical Exam Narrative: GENERAL: In general he is unchanged. He is intubated with some episodes of tachypnea but no purposeful movement. HEENT: Exam within normal limits. NECK: Supple without jugular vein distention. The carotid upstroke is normal without bruits. BACK: Exam normal. LUNGS: Clear. HEART: Regular rate and rhythm. Tachycardia ABDOMEN: Benign without organomegaly or tenderness. EXTREMITIES: No edema. NEUROLOGIC: Exam not done SKIN: Unremarkable. Urinary Catheter Management: Newton: Cath Placed During This Visit: yes Reason for Continuing Indwelling Catheter: Accurate Measurement of Urinary Output in Critically Ill Patients Urinary Catheter Date of Insertion: 04/23/22 Urinary Catheter Time of Insertion: 14:17 Data 04/24/22 02:55 04/24/22 02:55 Micro: Microbiology 04/23/22 12:25 Gram Stain - Final Sputum - Endotracheal Tube Aspirate A&P Assessment and plan (1) RENA (acute kidney injury): (2) Metabolic acidosis: (3) Acute hyperglycemia: (4) Cardiac arrest: (5) Acute myocardial ischemia: (6) Transaminitis: (7) Anoxic encephalopathy: Plan He is basically unchanged. My sentiments are the same as they were yesterday. That is to say his initial rhythm was PEA and he had CPR for greater than 1 hour and required 12 mg of epinephrine. Statistically speaking his chances of survival are 1% or less. Now we are experiencing an elevation in his creatinine, transaminitis and increasing requirements for vasoactive amines. In my estimation, his prognosis remains quite poor especially in light of his unchanged neurologic status. I had a detailed and aidan discussion with his , son and daughter, explained this all to them and answered all of their questions. Neck step would be electroencephalography in about 72 hours postevent. Attestations Medical Necessity Statement*: Hospitalization required for out of hospital arrest. Coding Level of Care Code Established Pt Acute Code for Chg Fwd Patient Type Established History Comprehensive Exam Comprehensive Medical Decision Making High Complexity Diagnoses RENA (acute kidney injury) N17.9 Metabolic acidosis E87.20 Acute hyperglycemia R73.9 Cardiac arrest I46.9 Acute myocardial ischemia I24.9 Transaminitis R74.01 Anoxic encephalopathy G93.1
[2022-04-24] MEDS: calcium gluconate 0.9% NaCL 1 GM/50 ML PREMIX IV ×2 (08:23→08:28)
[2022-04-24] MEDS: FUROsemide 10 mg/mL SDV 4mL 40 MG IVP (08:24)
[2022-04-24] MEDS: aztreonam 2,000 MG in sodium chloride 0.9% (plus) 100 ML 200 MG IV (08:41)
--- NOTE | 2022-04-24 08:54 | PC.NURSE ---
recieved this am eyes deviated upward pupils reactive twitching noted facial and extremities Dr called and orders recieved keppra given and ativan given along with versed gtt started .. noted blood pressure decrease and epi gtt started at this time. biz monitor started at this time and nimbex gtt started to assist control seizures Dr novoa here talked with family
[2022-04-24] MEDS: clindamycin 600 MG/50 ML PREMIX 100 MG IV (09:47)
[2022-04-24] MEDS: propofol 1,000 MG/100 ML INJ 5.88 MG IV (10:32)
--- NOTE | 2022-04-24 11:48 | P.PN_ITS ---
Subjective Subjective: We did not have cooling blankets, TTM was aborted last night He became febrile, leukocytosis 21,000 No fever until 04/24 He was not septic at the time of admission Leukocytosis worsen And adequate urine output Concern for ATN nonoliguric for now Started Lasix drip today Hold Lovenox in anticipation of dialysis catheter if family wants to pursue dialysis/CRRT Antibiotic de-escalated to aztreonam and clindamycin Patient was paralyzed with use of Nimbex because he was showing seizure-like act ivities Seizure-like activity resolved with use of Nimbex Patient is breathing above the vent despite propofol fentanyl Versed and Nimbex Pinpoint pupils Dr. Jacobo also met with the family Guarded prognosis was discussed Vitals/I&O/Wt Last Vital Signs Temp 100.9 F H 04/24/22 11:00 Pulse 130 H 04/24/22 11:15 Resp 26 H 04/24/22 11:26 BP 81/66 04/24/22 11:15 Pulse Ox 98 04/24/22 11:26 O2 Del Method 04/24/22 08:04 FiO2 30 04/24/22 11:26 04/23/22 04/24/22 04/24/22 22:59 06:59 14:59 Intake Total 406.058 / 367.614 2614.886 / 6506.367 5744.900 / 1732.900 Output Total 150 / 150 350 / 500 Balance 256.058 / 281.557 874.886 / 3570.859 9403.900 / 1732.900 Weight last 48 hrs Weight 103.464 kg Weight 102.087 kg Physical Exam Narrative: Patient is fluid overloaded Requiring 2 pressors Intubated sedated and paralyzed Newton catheter draining yellow-colored urine Abdomen distended however soft Bowel sounds sluggish No signs of myoclonus Pupils pinpoint Coffee-ground content in the suction container Urinary Catheter Management: Newton: Cath Placed During This Visit: yes Reason for Continuing Indwelling Catheter: Accurate Measurement of Urinary Outpu t in Critically Ill Patients Urinary Catheter Date of Insertion: 04/23/22 Urinary Catheter Time of Insertion: 14:17 Data 04/24/22 02:55 04/24/22 02:55 Micro: Microbiology 04/23/22 12:25 Gram Stain - Final Sputum - Endotracheal Tube Aspirate Sputum Culture - Preliminary A&P Assessment and plan (1) Anoxic encephalopathy: (2) RENA (acute kidney injury): (3) Metabolic acidosis: (4) Acute hyperglycemia: (5) Cardiac arrest: (6) Acute myocardial ischemia: (7) Non-ST elevated myocardial infarction (non-STEMI): (8) Febrile: (9) Cardiogenic shock: Plan 71-year male who presented to the hospital for 65 minutes of resuscitation by the EMS, as per the family EMS took 30 to 40 minutes to arrive at the scene however some continued CPR without doing [id number] breathing, he was intubated outside in the field, TTM was pursued however it was aborted because cooling blankets were not available, CT head not showing significant cerebral edema, will need to repeat CT head on Monday, metabolic acidosis corrected with bicarb drip which has been discontinued on 04/24, he was not febrile at the time of admission, 04/24 he started spiking fever, worsening leukocytosis antibiotics escalated, requested a lactic acid and blood cultures, he is on 2 pressors from day 1 for cardiogenic shock, high troponin noted no signs of STEMI cardiology is following with the medical team no plan for angiogram because of poor prognosis, patient is showing signs of anoxic brain injury with seizure-like activities wh ich were aborted with use of Nimbex today 04/24, he is still breathing above the vent despite 2 sedatives along with Versed and paralytic agent, he is developing nonoliguric ATN, Lasix drip started today patient is fluid overloaded, tachycardic, epinephrine has been discontinued on 04/24, switched to milrinone and Levophed for cardiogenic shock, family is not sure whether they will pursue dialysis agreeable with Lasix drip Cardiac arrest outside hospital in the field Patient was intubated by the EMS 65 minutes of resuscitation NSTEMI Patient was started on heparin drip which transition to therapeutic Lovenox I am holding Lovenox for today in case family decides to go with dialysis catheter placement on Monday ST depression noted on EKG Cardiology following along We will follow-up with echo Respiratory failure requiring mechanical ventilation Patient was intubated by the EMS Seizure-like activity Patient is sedated and paralyzed Currently on Nimbex, Versed, propofol fentanyl Patient is still breathing above the vent Seizure-like activity likely related to anoxic brain injury TTM protocol aborted HIs febrile episodes could be related to neurologic event No active source of infection 5 chest x-ray showing cardiogenic pulm edema, he is covered with aztreonam and clindamycin for now Requested lactic acid, blood cultures He was afebrile at the time of admission Pulmonary vascular congestion is improving on chest x-ray Cardiogenic shock: I will discontinue epinephrine he is tachycardic in 130s, sinus tach, will use Levophed along milrinone 04/24 patient started having febrile episodes, he is tachycardic, tachypneic worsening of leukocytosis, meet SIRS criteria for sepsis, no source has been identified, he is not a good candidate for septic bolus because of fluid overloaded state however I do believe his febrile episodes could be related to dysregulated hypothalamus due to anoxic brain injury Nonoliguric ATN Start Lasix drip Family is not sure whether they will pursue CRRT They would like to think about it after seeing the response from Lasix drip today Metabolic acidosis improved with use of bicarb drip which was discontinued today Guarded prognosis Multiple family meetings conducted Dr. Jacobo spoke with the family as well Patient does not have any history of coronary artery disease, however his father had a major heart attack in his 50s No signs of DIC Attestations Medical Necessity Statement*: Continue ICU management Critical Care Time: 30 Coding Level of Care Code Acute Code for Chg Fwd Diagnoses Anoxic encephalopathy G93.1 RENA (acute kidney injury) N17.9 Metabolic acidosis E87.20 Acute hyperglycemia R73.9 Cardiac arrest I46.9 Acute myocardial ischemia I24.9 Non-ST elevated myocardial infarction (non-STEMI) I21.4 Febrile R50.9 Cardiogenic shock R57.0
[2022-04-24 12:15] LABS: Alanine Aminotransferase 661 U/L (0-41); Albumin Level 2.8 g/dL (3.5-5.2); Alkaline Phosphatase 76 U/L (40-130); Anion Gap 31.5 (5-19); Aspartate Amino Transferase 602 U/L (0-40); Blood Urea Nitrogen 34 mg/dL (8-23); Carbon Dioxide 15 mmol/L (22-29); Chloride 91 mmol/L (98-107); Globulin 2.6 g/dL (1.3-4.6); Glomerular Filtration Rate 15.4 mL/min (90-130); Glucose 179 mg/dL (65-115); Osmolality Calculated 288 mOsm/kg (285-295); Potassium 4.5 mmol/L (3.5-5.1); Sodium 133 mmol/L (136-145); Total Bilirubin 0.4 mg/dL (0.15-1.2); Total Protein 5.4 g/dL (6.6-8.7)
[2022-04-24 13:12] LABS: Lactic Sepsis W/Reflex 12.2 mmol/L (0.5-2.2)
[2022-04-24] MEDS: sodium chloride 0.9% 1,000 ML 999 ML IV (13:19)
--- NOTE | 2022-04-24 13:41 | PC.NURSE ---
only 10 cc urine output noted attempted to start milrinone and decrease epi gtt biz monitor showed increased activity noted seizure activity increased nembex and increased epi gtt. family updated with decrease in status . Dr Chavez notified of above orders noted ivf of ns bolus infusing at this time. reposition and oral care done pupils reactive but sluggish no gag reflex noted at this time
[2022-04-24 13:54] LABS: Reflex Lactate Order REFLEX LACTIC ORDERD
[2022-04-24] MEDS: FUROsemide 100 MG in sodium chloride 0.9% 40 ML IV (14:21)
--- NOTE | 2022-04-24 15:18 | PC.NURSE ---
had seizure activity noted even on nembex .... increased on this time and doctor notified unable to obtain adequate pressure on three seperate medications. family aware of grim status no gag relex noted . family at bedside no code status at this time.
--- NOTE | 2022-04-24 15:55 | PC.NURSE ---
family at bedside all iv gtts and extubated at this time at bedside for comfort care at this time ... oral care done and no urine output noted .. no purposful response noted at this time
[2022-04-24 16:15] LABS: Lactic Acid level (Lactate) < 0.2 mmol/L (0.5-2.2)
--- NOTE | 2022-04-24 16:54 | PC.NURSE ---
family remains at bedside respirations agonal heart monitor remains stach. attempted to give ativan at this time family request to hold dont want him to hurt but dont want it to cause him to go faster....
--- NOTE | 2022-04-24 18:09 | PM.DDS ---
Discharge Providers DDS Date of Admission: 04/23/22 13:40 Date Summary Completed: 04/24/22 Attending Provider at Admission: Teetee Parker MD Attending Provider at Discharge: Teetee Parker MD Primary Care Provider: IJEOMA Mcmahon Diagnoses Hospital Diagnoses (1) Anoxic encephalopathy: (2) RENA (acute kidney injury): (3) Metabolic acidosis: (4) Acute hyperglycemia: (5) Cardiac arrest: (6) Acute myocardial ischemia: (7) Non-ST elevated myocardial infarction (non-STEMI): (8) Febrile: (9) Cardiogenic shock: Reason for Visit Reason for Visit INTUBATED Summary Summary Summary: Time of 1740 Patient was admitted after 65 minutes of visitation for cardiac arrest outside the hospital, developed cardiogenic shock, NSTEMI, HTN, febrile episodes related to seizure-like activities, anoxic brain injury. Family made him comfort care and terminally extubated him. Cardiology was on board as well Additional Data Confirmation of as documented by pronouncing clinician: no pulse, no respirations, no heart sounds and pupils fixed and dilated Family: at bedside Additional persons at bedside: nursing staff Attending/PCP notified?: I am attending Was code activated?: No Autopsy requested?: No Advance directives?: No Hospice patient?: No Discharge Plan Discharge Patient Disposition: Home Condition: Stable Prescriptions: No Action Unable to Assess Discharge Orders: Discharge Order (Routine); Ordered 04/24/22 Ordered By: Teetee Parker Referrals: Charlee Bray FNP [Primary Care Provider] - Patient Instructions: Opioid Safety DS Attestations Time Spent in /Discharge Care*: less than 30 min Quality - AMI: AMI present?: No Quality - Stroke: CVA present?: No Quality - VTE: VTE present?: No Coding Level of Care Code Acute Code for Chg Fwd History Expanded Problem Focused Exam Expanded Problem Focused Medical Decision Making High Complexity Diagnoses Anoxic encephalopathy G93.1 RENA (acute kidney injury) N17.9 Metabolic acidosis E87.20 Acute hyperglycemia R73.9 Cardiac arrest I46.9 Acute myocardial ischemia I24.9 Non-ST elevated myocardial infarction (non-STEMI) I21.4 Febrile R50.9 Cardiogenic shock R57.0
--- NOTE | 2022-04-24 18:33 | PC.NURSE ---
performed post mortem care at 181. Patient IV, central lines and galindo were removed.
--- NOTE | 2022-04-24 18:35 | PC.NURSE ---
Removed IV post expiration. Catheter intact.
--- NOTE | 2022-04-24 18:38 | PC.NURSE ---
Newton removed post expiration. Catheter intact.
--- NOTE | 2022-04-24 18:46 | PC.NURSE ---
Versed 88.6 ml wasted with ANDREY Martin RN
--- NOTE | 2022-04-24 18:46 | NUR.SHIFT ---
versed 88.6 cc wasted with witness Carmita Cruz rn .. body to [facility] pending mts referal
[2022-05-24 11:09] LABS: ABG PCO2 79.8 mmHg (35-45)
== END 2022-04-24 19:15 | disposition expired ==
LOC: ER 13:43 → ICU 14:43
PROVIDERS: Admitting Provider Internal Medicine; Emergency Provider Family Medicine; PCP Nurse Practitioner; Visit Provider Internal Medicine
DX: I46.9 Cardiac arrest, cause unspecified (principal); I21.4 Non-ST elevation (NSTEMI) myocardial infarction; J96.90 Respiratory failure, unspecified, unspecified whether with hypoxia or hypercapnia; N17.0 Acute kidney failure with tubular necrosis; G93.1 Anoxic brain damage, not elsewhere classified; E87.20 Acidosis, unspecified; R57.0 Cardiogenic shock; R73.9 Hyperglycemia, unspecified; I10 Essential (primary) hypertension; Z51.5 Encounter for palliative care; Z88.0 Allergy status to penicillin; Z87.01 Personal history of pneumonia (recurrent); R68.0 Hypothermia, not associated with low environmental temperature; Z66 Do not resuscitate
CPT/HCPCS: 36415; 36416; 36556; 36600; 51702; 70450; 71045; 80048; 80051; 80053; 82330; 82803; 82805; 82962; 83605; 83880; 84484; 85025; 85362; 85378; 85384; 85610; 85730; 87040; 87070; 87205; 87426; 93005; 94002; 94003; 94664; 94799; 96365; 96366; 96367; 96372; 96375; 99291; 99292; J0171; J0610; J1644; J1650; J1940; J1953; J1956; J2060; J2250; J2260; J2704; J3490; J7030; J7050; J7060